=== PATIENT | male | born 1980 | race Caucasian/White ===

== ENCOUNTER → 2020-05-28 | Outpatient (CLI) | payer OTHER ==
--- NOTE | 2020-05-28 13:48 | RAD ---
XR KNEE 3 VIEWS_RT DATE: 05/28/2020 10:26 AM INDICATION: Reason: RIGHT KNEE AND LOW BACK PAIN. / Spl. Instructions: / History: COMPARISON: None. FINDINGS: Bones: There is no evidence of acute fracture or dislocation. Joints: The joint spaces are normal. There is no joint effusion. Miscellaneous: None. IMPRESSION: Normal exam Electronically signed by: Ken Minaya MD (05/28/2020 1:46 PM) [id number]
--- NOTE | 2020-05-28 17:28 | RAD ---
EXAM: Lumbar spine, 3 views. HISTORY: Pain. COMPARISON: None. FINDINGS: 3 views of the lumbar spine are obtained. There is grade 1 anterolisthesis of L5 on S1. The re is facet arthropathy at this level. There are laminotomy changes at this level. No acute fracture is seen. IMPRESSION: 1. No acute osseous finding. 2. Grade 1 anterolisthesis and facet arthropathy at L5-S1. There are laminectomy changes at this leve l. Electronically signed by: Terese Gomez MD (05/28/2020 5:26 PM) [facility]
== END ==
LOC: RAD 10:16
PROVIDERS: ATTEND Family Medicine
DX: M43.17 Spondylolisthesis, lumbosacral region (principal); M12.88 Other specific arthropathies, not elsewhere classified, other specified site; M25.561 Pain in right knee
CPT/HCPCS: 72100; 73562